=== PATIENT | female | born 1995 | race Caucasian/White ===

== ENCOUNTER 2016-10-07 20:19 | Observation (INO) | payer MEDICAID ==
[2016-10-08] MEDS ORDERED: PRENA1 CHEW TA1.4 M1 PO (00:07)
[2016-10-08 03:48] LABS: URINE BILIRUBIN NEGATIVE (NEG); URINE BLOOD LARGE (NEG); URINE GLUCOSE (UA) NEGATIVE (NEG); URINE KETONE LARGE (NEG); URINE LEUKOCYTE ESTERASE POSITIVE (NEG); URINE NITRITE NEGATIVE (NEG); URINE PROTEIN MODERATE (NEG)
[2016-10-08 03:55] LABS: URINE APPEARANCE CLOUDY; URINE COLOR YELLOW
[2016-10-08 04:01] LABS: URINE BACTERIA 2+; URINE MUCUS 3+; URINE RBC 0-3 /[HPF] (0-5)
== END 2016-10-09 16:00 ==
LOC: LDR 20:19
PROVIDERS: ADMIT Advanced Practice Midwife
DX: O60.03 Preterm labor without delivery, third trimester (principal); O23.43 Unspecified infection of urinary tract in pregnancy, third trimester; O99.89 Other specified diseases and conditions complicating pregnancy, childbirth and the puerperium; R11.2 Nausea with vomiting, unspecified; E86.0 Dehydration; Z3A.33 33 weeks gestation of pregnancy; Z79.899 Other long term (current) drug therapy; Z88.5 Allergy status to narcotic agent; Z90.89 Acquired absence of other organs; Z98.890 Other specified postprocedural states
CPT/HCPCS: G0378; J0696; J0702; J2270; J2405; J3105

== ENCOUNTER 2016-11-03 07:48 | Inpatient (IN) | payer MEDICAID ==
[~2016-11-03 07:48] MED LIST: PRENA1 CHEW TA1.4 M1 PO
[2016-11-03 10:41] LABS: BASO % 0.1 % (0-2); EOS % 0.3 % (0-7); HCT-HEMATOCRIT 31.6 % (34.0-49.0); HGB-HEMOGLOBIN 10.7 gm/dl (12.0-15.5); IMMATURE GRANULOCYTES ABSOLUTE 0.06 tho/cmm (0-0.03); IMMATURE GRANULOCYTES PERCENT 0.4 % (0-0.3); LYMPH % 24.4 % (20-45); LYMPH ABSOLUTE COUNT 3.5 tho/cmm (0.8-4.5); MCH (MEAN CORPUSCULAR HGB) 29.4 pg (28.0-32.0); MCHC MEAN CORPUSCULAR HGB CONC 33.9 % (32.0-36.0); MCV (MEAN CELL VOLUME) 86.8 fl (82.0-96.0); MEAN PLATELET VOLUME 10.8 cmc (9.4-12.4); MONO % 4.3 % (0-12); MONOCYTE ABSOLUTE COUNT 0.6 tho/cmm (0.0-1.2); NEUTROPHIL ABSOLUTE COUNT 10.2 tho/cmm (1.6-8.0); NEUTROPHIL-AUTOMATED 10.2 tho/cmm (1.6-8.0); NEUTROPHILS % 70.5 % (40-80); PLATELET COUNT 233 tho/cmm (150-450); RED BLOOD COUNT 3.64 mil/cmm (4.00-5.20); RED CELL DISTRIBUTION WIDTH 13.3 % (12.4-16.4); WHITE BLOOD COUNT 14.5 tho/cmm (4.0-10.0)
[2016-11-03 14:54] LABS: CORD BLOOD PH ARTERIAL 7.33 Units (7.18-7.38)
[2016-11-04 05:36] LABS: BASO % 0.1 % (0-2); EOS % 0.6 % (0-7); EOSINOPHIL ABSOLUTE COUNT 0.1 tho/cmm (0.0-0.7); HCT-HEMATOCRIT 26.4 % (34.0-49.0); HGB-HEMOGLOBIN 8.6 gm/dl (12.0-15.5); IMMATURE GRANULOCYTES ABSOLUTE 0.05 tho/cmm (0-0.03); IMMATURE GRANULOCYTES PERCENT 0.4 % (0-0.3); LYMPH % 24.4 % (20-45); LYMPH ABSOLUTE COUNT 3.3 tho/cmm (0.8-4.5); MCH (MEAN CORPUSCULAR HGB) 28.3 pg (28.0-32.0); MCHC MEAN CORPUSCULAR HGB CONC 32.6 % (32.0-36.0); MCV (MEAN CELL VOLUME) 86.8 fl (82.0-96.0); MEAN PLATELET VOLUME 10.6 cmc (9.4-12.4); MONO % 7.2 % (0-12); NEUTROPHIL ABSOLUTE COUNT 9.1 tho/cmm (1.6-8.0); NEUTROPHIL-AUTOMATED 9.1 tho/cmm (1.6-8.0); NEUTROPHILS % 67.3 % (40-80); PLATELET COUNT 195 tho/cmm (150-450); RED BLOOD COUNT 3.04 mil/cmm (4.00-5.20); RED CELL DISTRIBUTION WIDTH 13.6 % (12.4-16.4); WHITE BLOOD COUNT 13.5 tho/cmm (4.0-10.0)
[2016-11-04] MEDS ORDERED: IBUPROFEN800 M1 PO (09:46)
[2016-11-04] MEDS ORDERED: IRON CHEWS15 M1 PO (10:15)
== END 2016-11-04 17:15 | DRG 775 ==
LOC: LDR 07:48 → OBGD 16:20
PROVIDERS: Anesthesiology; ADMIT Advanced Practice Midwife
PROC: 10E0XZZ Delivery of Products of Conception, External Approach (ICD-10-PCS; principal; 2016-11-03)
PROC: 10907ZC Drainage of Amniotic Fluid, Therapeutic from Products of Conception, Via Natural or Artificial Opening (ICD-10-PCS; 2016-11-03)
DX: O69.81X0 Labor and delivery complicated by cord around neck, without compression, not applicable or unspecified (principal); Z37.0 Single live birth; Z3A.37 37 weeks gestation of pregnancy
CPT/HCPCS: J2405; J2590; J2791; J3010